=== PATIENT | female | born 1995 | race Caucasian/White ===

== ENCOUNTER 2019-01-12 09:33 | Inpatient (IN) ==
[2019-01-12 11:03] LABS: Basophils % 0.3 % (0.0-0.8); Eosinophils # 0.2 10*3/uL (0.0-0.87); Hematocrit 33.1 VOL% (35.7-47.0); Hemoglobin 11.1 GM/DL (12.0-16.0); Immature Granulocytes % 0.7 %; Immature Granulocytes Absolute 0.05 #; Lymphocytes # 1.2 10*3/uL (1.4-4.0); Lymphocytes % 16.5 % (21.3-54.2); Mean Corpuscular HGB Conc 33.5 GM/DL (32-36); Mean Corpuscular Volume 91.4 FL (87-102); Mean Platelet Volume 10.4 FL (9.6-12.0); Monocytes % 8.3 % (1.7-12.7); Neutrophils % 72.2 % (38.7-73.9); Platelet Count 138 T/CUMM (130-400); Red Blood Count 3.62 MC/CUMM (3.8-5.5); Red Cell Distribution Width 14.8 % (9.3-17.3); White Blood Count 7.5 T/CUMM (4-12)
[2019-01-12 11:17] LABS: INR 0.9; PT Patient Result 9.9 SECS; Partial Thromboplastin Time 26.7 SECS (0-40)
[2019-01-12 11:40] LABS: Alanine Aminotransferase 15 U/L (13-56); Albumin 2.8 G/DL (3.4-5.0); Alkaline Phosphatase 216 U/L (45-117); Aspartate Amino Transferase 18 U/L (0-37); Bilirubin,Direct < 0.100 MG/DL (0.0-0.20); Blood Urea Nitrogen 5 MG/DL (7-18); Calcium 8.7 MG/DL (8.5-10.1); Glucose 78 MG/DL (74-106); Osmolality,Calculated 276.3 MOS/KG (273-304); Total Protein 6.8 G/DL (6.4-8.3); Uric Acid 4.6 MG/DL (2.6-6.0)
[2019-01-12 11:44] LABS: Apearance,Urine CLEAR (Clear); Bilirubin,Urine Negative (Negative); Blood, Urine Negative (Negative); Glucose,Urine (UA) Negative (Negative); Ketones,Urine 20 mg/dL (Negative); Mucus,Urine Occasional /LPF (Occasional); Nitrite,Urine Negative (Negative); Protein,Urine Negative; RBC,Urine <1 /HPF (0-4); Squamous Epithelial Cell,Urine Occasional /HPF (0-10); Urine Color Yellow (Yellow); Urine Urobilinogen < 2.0 EU/DL (0.2-1.0); WBC,Urine <1 /HPF (0-6)
[2019-01-12] MEDS: LABETALOL 100 MG TABLET PO SCH ×2 (12:32→23:46)
[2019-01-12] MEDS: ACETAMINOPHEN 325 MG TABLET PO PRN (19:10)
[2019-01-13] MEDS: ACETAMINOPHEN 325 MG TABLET PO PRN ×3 (03:11→15:33)
[2019-01-13] MEDS: LABETALOL 100 MG TABLET PO SCH ×3 (08:45→21:00)
[2019-01-13 12:42] LABS: Total Volume,Urine 3950 ML (400-2000)
[2019-01-13 12:49] LABS: Total Protein 24 Hr Ur Result 355 MG/24HR (0-149.1)
[2019-01-13 13:38] LABS: Creatinine Clearance Urine 175.55 ML/MIN (70-115)
[2019-01-13] MEDS ORDERED: BUTORPHANOL 2 MG/ML VIAL IV PRN (14:43)
[2019-01-13] MEDS: ONDANSETRON 4 MG/2 ML VIAL IV PRN (17:50)
[2019-01-13] MEDS: LACTATED RINGERS 1,000 ML IV SCH ×2 (20:23→23:47)
[2019-01-13] MEDS ORDERED: ZALEPLON 5 MG CAPSULE PO PRN (23:00)
[2019-01-14] MEDS ORDERED: AMPICILLIN 2,000 MG VIAL IM ONE (04:00)
[2019-01-14] MEDS ORDERED: SODIUM CHLORIDE 0.9% 100 ML IV ONE (06:18)
[2019-01-14] MEDS: LACTATED RINGERS 1,000 ML IV SCH (06:24)
[2019-01-14] MEDS ORDERED: AMPICILLIN INJ 2,000 MG in SODIUM CHLORIDE 0.9% 100 ML IV ONE (06:28)
[2019-01-14] MEDS ORDERED: AMPICILLIN INJ 1,000 MG in SODIUM CHLORIDE 0.9% 100 ML IV SCH (08:00)
[2019-01-14] MEDS ORDERED: OXYTOCIN/LR 20 UNIT/1,000 ML BAG IV ONE ×2 (08:27→11:38)
[2019-01-14] MEDS ORDERED: OXYTOCIN/LR 20 UNIT/1,000 ML BAG IV SCH (08:30)
[2019-01-14] MEDS: LABETALOL 100 MG TABLET PO SCH ×3 (08:35→17:06)
[2019-01-14] MEDS: ONDANSETRON 4 MG/2 ML VIAL IV PRN (08:47)
[2019-01-14] MEDS ORDERED: ePHEDrine 50 MG/ML AMP IV PRN (10:59)
[2019-01-14] MEDS ORDERED: hydrOXYzine HCL 25 MG/1 ML VIAL IM PRN (10:59)
[2019-01-14] MEDS ORDERED: FAMOTIDINE 20 MG/2 ML VIAL IV ONE (10:59)
[2019-01-14] MEDS ORDERED: diphenhydrAMINE 50 MG/1 ML VIAL IV PRN ×2 (10:59)
[2019-01-14] MEDS ORDERED: NALOXONE 0.4 MG/ML VIAL IV PRN (10:59)
[2019-01-14] MEDS ORDERED: MEPERIDINE 50 MG/1 ML VIAL ONE (11:14)
[2019-01-14] MEDS ORDERED: PROMETHAZINE 25 MG/1 ML VIAL IM ONE (11:30)
[2019-01-14] MEDS ORDERED: LACTATED RINGERS 1,000 ML IV ONE (11:30)
[2019-01-14] MEDS ORDERED: fentaNYL 2 MCG/ROPIV 0.2% EPID 100 ML EPIDURAL SCH (11:30)
[2019-01-14] MEDS ORDERED: CITRIC ACID/SODIUM CITRATE 30 ML UDCUP PO ONE (11:30)
[2019-01-14] MEDS ORDERED: MEPERIDINE 50 MG/1 ML VIAL IV ONE (11:34)
[2019-01-14] MEDS ORDERED: WITCH HAZEL PADS 100/JAR TOP PRN (11:38)
[2019-01-14] MEDS ORDERED: DIPH/TET/ACEL PERT BOOSTER VACCINE 0.5 ML VIAL IM ONE (11:38)
[2019-01-14] MEDS ORDERED: oxyCODONE/ACETAMINOPHEN 5-325 MG TABLET PO PRN ×2 (11:38)
[2019-01-14] MEDS ORDERED: IBUPROFEN 800 MG TABLET PO PRN (11:38)
[2019-01-14] MEDS ORDERED: BISACODYL 10 MG SUPP RECTAL PRN (11:38)
[2019-01-14] MEDS ORDERED: ACETAMINOPHEN 325 MG TABLET PO PRN (11:38)
[2019-01-14] MEDS ORDERED: LANOLIN 50% CREAM 0.3 OZ TUBE TOP PRN (11:38)
[2019-01-14] MEDS ORDERED: RHO(D) IMMUNE GLOBULIN 300 MCG SYRINGE IM ONE (11:38)
[2019-01-14] MEDS ORDERED: HYDROCORTISONE 2.5% RECTAL CREAM 30 GM TUBE TOP PRN (11:38)
[2019-01-14] MEDS ORDERED: ONDANSETRON 4 MG/2 ML VIAL IV PRN (11:38)
[2019-01-14] MEDS ORDERED: MEASLES/MUMPS/RUBELLA VACCINE 0.5 ML VIAL SUBCUT ONE (11:38)
[2019-01-14] MEDS ORDERED: BENZOCAINE 20%/MENTHOL 0.5% SPRAY 56 GM CAN TOP PRN (11:38)
[2019-01-14] MEDS: DOCUSATE SODIUM 100 MG CAPSULE PO SCH (21:10)
[2019-01-15] MEDS: LABETALOL 100 MG TABLET PO SCH ×4 (01:00→20:36)
[2019-01-15 06:05] LABS: Basophils % 0.3 % (0.0-0.8); Eosinophils # 0.1 10*3/uL (0.0-0.87); Eosinophils % 0.8 % (0.00-10.9); Hematocrit 28.6 VOL% (35.7-47.0); Hemoglobin 9.5 GM/DL (12.0-16.0); Immature Granulocytes % 0.4 %; Immature Granulocytes Absolute 0.04 #; Lymphocytes # 1.4 10*3/uL (1.4-4.0); Lymphocytes % 15.6 % (21.3-54.2); Mean Corpuscular HGB Conc 33.2 GM/DL (32-36); Mean Corpuscular Volume 92.3 FL (87-102); Mean Platelet Volume 10.4 FL (9.6-12.0); Monocytes % 8.4 % (1.7-12.7); Neutrophils % 74.5 % (38.7-73.9); Platelet Count 119 T/CUMM (130-400); Red Cell Distribution Width 14.8 % (9.3-17.3)
[2019-01-15] MEDS: DOCUSATE SODIUM 100 MG CAPSULE PO SCH ×2 (08:57→20:36)
[2019-01-15] MEDS ORDERED: RHO(D) IMMUNE GLOBULIN 300 MCG SYRINGE IM ONE (09:00)
[2019-01-15] MEDS: FERROUS SULFATE 325 MG TABLET PO SCH ×2 (10:05→20:36)
[2019-01-16 07:50] VITALS: BP 126/79
[2019-01-16] MEDS: DOCUSATE SODIUM 100 MG CAPSULE PO SCH (08:56)
[2019-01-16] MEDS: LABETALOL 100 MG TABLET PO SCH (08:56)
[2019-01-16] MEDS: FERROUS SULFATE 325 MG TABLET PO SCH (08:56)
== END 2019-01-16 14:50 | disposition home or self-care (01) | DRG 560 ==
LOC: N.LDOUT 09:33 → N.LD 09:38 → N.OB 01-14 14:55
PROVIDERS: ADMIT Specialist; ATTEND Specialist